=== PATIENT | female | born 1955 | race Caucasian/White ===

== ENCOUNTER 2016-12-05 09:08 | Emergency (ER) | payer BC ==
[2016-12-05 09:13] VITALS: BP 133/56
--- NOTE | 2016-12-05 12:27 | ED ---
Farrah Flores Nilda, scribed for Fawad Brown MD on 12/05/16 at 0949 . Abdominal Pain/Female - HPI Summary HPI Summary: This patient is a 60 year old F presenting from [facility] to [facility] accompanied by with a chief complaint of sharp intermittent waves of mid-abdominal pain s/p eating 2 deep-fried donuts yesterday (10 hours ago). The patient rated the pain 8/10 in severity but it is no longer present. Symptoms aggravated by food and alleviated by spontaneous resolution. Patient reports vomiting ( resolved), abdominal bloating (still present), and epistaxis (last week, resolved). She denies diarrhea. She had similar symptoms 7 weeks ago that resolved. - History of Current Complaint Chief Complaint: EDAbdPain Stated Complaint: STOMACH PAIN Time Seen by Provider: 12/05/16 09:44 Hx Obtained From: Patient Onset/Duration: Sudden Onset Timing: Intermittent Episode Lasting Severity Currently: Severe Pain Intensity: 8 Pain Scale Used: 0-10 Numeric Location: Diffuse Character: Sharp Aggravating Factor(s): Food Alleviating Factor(s): Spontaneous Resolution Associated Signs and Symptoms: Positive: Vomiting, Other: - Abdominal bloating. Negative: Diarrhea PMH/Surg Hx/FS Hx/Imm Hx Cardiovascular History: Reports: Hx Hypertension Sensory History: Reports: Hx Contacts or Glasses Opthamlomology History: Reports: Hx Contacts or Glasses Infectious Disease History: No Infectious Disease History: Denies: Traveled Outside the [place] in Last 30 Days - Family History Known Family History: Positive: Hypertension, Diabetes Review of Systems Positive: Epistaxis - 1 week ago, resolved Positive: Abdominal Pain, Vomiting, Other - bloating. Negative: Diarrhea All Other Systems Reviewed And Are Negative: Yes Physical Exam Triage Information Reviewed: Yes Vital Signs On Initial Exam: Initial Vitals Temp Pulse Resp BP Pulse Ox 98.6 F 102 17 133/56 100 12/05/16 09:11 12/05/16 09:11 12/05/16 09:11 12/05/16 09:11 12/05/16 09:11 Vital Signs Reviewed: Yes Appearance: Positive: Well-Appearing, No Pain Distress Skin: Positive: Warm, Skin Color Reflects Adequate Perfusion, Dry Head/Face: Positive: Normal Head/Face Inspection Eyes: Positive: Normal ENT: Positive: Normal ENT inspection Neck: Positive: Supple, Nontender Respiratory/Lung Sounds: Positive: Clear to Auscultation, Breath Sounds Present Cardiovascular: Positive: RRR Abdomen Description: Positive: Nontender, Soft Bowel Sounds: Positive: Present Musculoskeletal: Positive: Normal Neurological: Positive: Normal Psychiatric: Positive: Normal, Affect/Mood Appropriate Diagnostics - Vital Signs Vital Signs Temp Pulse Resp BP Pulse Ox 12/05/16 09:11 98.6 F 102 17 133/56 100 - Laboratory Lab Statement: Any lab studies that have been ordered have been reviewed, and results considered in the medical decision making process. Abdominal Pain Fem Course/Dx - Course Course Of Treatment: By the time Ms. Palma arrived in the ED, her symptoms were resolved and her exam was WNL. She had a sandwich here without return of her symptoms. - Diagnoses Provider Diagnoses: Abdominal pain Discharge - Discharge Plan Condition: Stable Disposition: HOME Patient Education Materials: Acute Abdominal Pain (ED) Additional Instructions: Follow up with primary care physician in 1 week if symptoms re-occur. RETURN TO THE EMERGENCY DEPARTMENT FOR CHANGING OR WORSENING SYMPTOMS. The documentation as recorded by the Farrah hamilton Nilda accurately reflects the service I personally performed and the decisions made by me, Fawad Brown MD.
== END 2016-12-05 11:18 | disposition home or self-care (01) ==
LOC: ED 09:08
DX: R10.9 Unspecified abdominal pain (principal); I10 Essential (primary) hypertension; R11.10 Vomiting, unspecified; R04.0 Epistaxis
CPT/HCPCS: 99282